=== PATIENT | male | born 1970 | race Two or more races ===

== ENCOUNTER 2019-11-06 01:46 | Emergency (ER) | payer SELFPAY ==
[~2019-11-06] VITALS: Ht 172.7 cm; Wt 72.6 kg
[2019-11-06 01:50] VITALS: BP 130/90
--- NOTE | 2019-11-06 01:56 | Emergency Room Report ---
History of Present Illness General Chief Complaint: Altered Level of Consciousness Source: EMS Present Illness HPI This a 49-year-old male with unknown medical history and unknown psychiatric history. He presents with chief complaint of altered mental status. [facility]. People there called 911 because he appeared to be altered. He does not make any sense. No alcohol or drug use. Unable to get any history from this patient. Patient has multiple old stickers sahu on his arms and EKG sahu on his body. Does appear that he has been in multiple hospitals before. There is no new obvious trauma on his body. Allergies: Coded Allergies: No Known Allergies (Unverified , 11/06/19) COVID-19 Screening COVID-19 risk:Contact w/high r: No COVID-19 risk:Travel to affect: No Has patient experienced palmer: No COVID-19 Testing performed OFFICE ASSISTANT RECEPTIONIST: No Patient History Past Medical History: see triage record, old chart reviewed Past Surgical History: unable to obtain Family History: unable to obtain Social History: unable to obtain Immunizations: other Reviewed Nursing Documentation: PMH: Agreed; PSxH: Agreed Nursing Documentation-PMH Past Medical History Deferred: Pt Cognitively Impaired Review of Systems All Other Systems: limited - Secondary to his mental status Physical Exam Vital Signs Date Time Temp Pulse Resp B/P (MAP) Pulse Ox O2 Delivery O2 Flow Rate FiO2 11/06/19 01:46 99.1 110 18 130/90 (103) 99 Room Air 11/06/19 01:50 98 Vitals tachycardia Sp02 EP Interpretation: reviewed, normal General Appearance: alert/responsive, no apparent distress, non-toxic, other - Confused Head: normocephalic, atraumatic Eyes: PERRL, EOMI ENT: oropharynx normal Neck: supple/symm/no masses Respiratory: effort normal, no rhonchi, no wheezing Cardiovascular: no murmur, gallop, rub Gastrointestinal: non-tender, no mass, non-distended, no rebound/guarding, normal bowel sounds Musculoskeletal: gait & station normal Neurologic: sensory intact, motor strength/tone normal Skin: no rash, normal palpation Medical Decision Making Diagnostic Impression: Primary Impression: Altered level of consciousness ER Course Patient presents with altered mental status. No evidence of any drugs or alcohol on board. However, I suspect that he has a history of alcohol abuse with encephalopathy. Liver enzymes are elevated. Still has benzo on board. I suspect that he was intoxicated and was given benzodiazepine at outside hospital. Last Vital Signs Date Time Temp Pulse Resp B/P (MAP) Pulse Ox O2 Delivery O2 Flow Rate FiO2 11/06/19 01:50 99.1 110 18 130/90 99 Room Air 11/06/19 01:50 98 Status: improved Disposition: HOME, SELF-CARE Condition: Stable Patient Instructions: Altered Mental Status Additional Instructions: Follow-up with your doctor in 7 days but return if symptoms worsen. Vance Rausch MD Nov 06, 2019 01:56
[2019-11-06 02:18] LABS: APPEARANCE,URINE CLEAR; BILIRUBIN, URINE NEGATIVE (NEGATIVE); COLOR,URINE PALE YELLOW; GLUCOSE, URINE (UA) 1+ (NEGATIVE); KETONES,URINE NEGATIVE (NEGATIVE); LEUKOCYTE ESTERASE ,URINE NEGATIVE (NEGATIVE); NITRITE,URINE NEGATIVE (NEGATIVE); PH,URINE 5 (4.5-8.0); UROBILINOGEN,URINE NORMAL MG/DL (0.0-1.0)
[2019-11-06 02:22] LABS: HEMATOCRIT 33.6 % (42.0-52.0); HEMOGLOBIN 12.7 G/DL (14.2-18.0); MEAN CORPUSCULAR VOLUME 92 FL (80-99); PLATELET COUNT 236 K/UL (150-450); RED BLOOD COUNT 3.63 M/UL (4.70-6.10); RED CELL DISTRIBUTION WIDTH 10.4 % (11.6-14.8); WHITE BLOOD COUNT 3.4 K/UL (4.8-10.8)
[2019-11-06 02:23] LABS: PROTEIN,URINE NEGATIVE (NEGATIVE)
[2019-11-06 02:39] LABS: ANION GAP 10 mmol/L (5-15); BLOOD UREA NITROGEN 22 mg/dL (7-18); CALCIUM 9.7 MG/DL (8.5-10.1); CARBON DIOXIDE 25 MMOL/L (21-32); CHLORIDE 102 MMOL/L (98-107); POTASSIUM 3.6 MMOL/L (3.5-5.1); SODIUM 137 MMOL/L (136-145)
[2019-11-06 02:44] LABS: ALANINE AMINOTRANSFERASE 247 U/L (12-78); ALBUMIN 3.3 G/DL (3.4-5.0); ALBUMIN/GLOBULIN RATIO 0.9 (1.0-2.7); ALKALINE PHOSPHATASE 197 U/L (46-116); ASPARTATE AMINO TRANSFERASE 114 U/L (15-37)
[2019-11-06 03:18] VITALS: BP 115/77
[2019-11-06 06:00] VITALS: BP 127/68
[2019-11-06 06:07] VITALS: BP 127/82
== END 2019-11-06 06:08 | disposition home or self-care (01) ==
LOC: EDBD 01:46 → EMR 02:10
DX: R41.82 Altered mental status, unspecified (principal); R94.5 Abnormal results of liver function studies
CPT/HCPCS: 36415; 80053; 80307; 81001; 82140; 85025; 96360; 99284; G0480; J7030